=== PATIENT | female | born 1975 | race Caucasian/White ===

== ENCOUNTER 2020-10-19 11:18 | Emergency (ER) | payer MEDICAID, OTHER ==
[~2020-10-19] VITALS: Ht 165.1 cm; Wt 76.5 kg
[2020-10-19 11:18] VITALS: BP 142/84
[2020-10-19] MEDS ORDERED: VENL150C43 PO (11:25)
[2020-10-19] MEDS ORDERED: LORA2CON5 PO (11:25)
[2020-10-19] MEDS ORDERED: MONT10TA10 PO (11:25)
[2020-10-19] MEDS ORDERED: TRAZ-257 PO (11:25)
[2020-10-19] MEDS ORDERED: SERO1TAB PO (11:25)
[2020-10-19] MEDS ORDERED: NORCO, ANEXSIA 5/325MG TABLET (HYDROcodone/ACETAMINOPHEN) PO ONE (11:45)
--- NOTE | 2020-10-19 12:05 | REP ---
INDICATION: fall, back pain. COMPARISON: None. TECHNIQUE: Five views lumbosacral spine. FINDINGS: There is no compression fracture or malalignment. There is normal lumbar lordosis. There is mild curvature toward the left. The disc spaces are well preserved. The posterior elements are intact. There is a 1 cm calcific density in the right upper quadrant which may represent a gallstone. IMPRESSION: No fracture or dislocation. <Electronically signed by Moody Garcia > 10/19/20 [id number]
[2020-10-19] MEDS ORDERED: SKEL800T97 PO (12:07)
[2020-10-19] MEDS ORDERED: IBUP-1022 PO (12:08)
== END 2020-10-19 12:21 | disposition home or self-care (01) ==
LOC: M ED 11:18
DX: M62.830 Muscle spasm of back (principal); I10 Essential (primary) hypertension; Z79.899 Other long term (current) drug therapy

== ENCOUNTER → 2021-02-12 | Outpatient (REF) ==
[~2021-02-12] MED LIST: IBUP-1022 PO; LORA2CON5 PO; MONT10TA10 PO; SERO1TAB PO; SKEL800T97 PO; TRAZ-257 PO; VENL150C43 PO
--- NOTE | 2021-02-13 04:01 | REPPI ---
INDICATION: DISABILITY DIAGNOSIS DETERMINATION COMPARISON: None. TECHNIQUE: AP, lateral, bilateral oblique views right hand. FINDINGS: The osseous structures and joint spaces are intact and essentially age-appropriate. No overt osteoarthritic degenerative changes are appreciated. There is no evidence for acute fracture or dislocation. Surrounding soft tissues are unremarkable. No subcutaneous emphysema or radiodense foreign body. IMPRESSION: Essentially age-appropriate examination. No acute fracture or dislocation. <Electronically signed by Daniel Sim > 02/13/21 [id number]
--- NOTE | 2021-02-13 04:17 | REPPI ---
INDICATION: DISABILITY DIAGNOSIS DETERMINATION. COMPARISON: None. TECHNIQUE: AP, lateral, open mouth views of the cervical spine. FINDINGS: Focal early advanced degenerative changes at C5-6 with associated reversal of normal lordosis noted. Findings include endplate sclerosis, disc space narrowing, and osteophytosis. Remainder of the examination appears normal. No acute fracture/compression injury or subluxation. IMPRESSION: Focal advanced degenerative changes at C5-6 with associated reversal of normal lordosis. <Electronically signed by Daniel Sim > 02/13/21 [id number]
== END ==
LOC: M PLAIMG 11:36
PROVIDERS: ATTEND Internal Medicine
DX: M54.2 Cervicalgia (principal)

== ENCOUNTER 2022-01-05 18:46 | Emergency (ER) | payer OTHER, SELFPAY ==
[~2022-01-05] VITALS: Ht 165.1 cm; Wt 67.8 kg
[~2022-01-05 18:46] MED LIST changes: -MONT10TA10 PO; +MONT10TA97 PO
[2022-01-05 18:48] VITALS: BP 138/96
== END 2022-01-05 19:23 | disposition left against medical advice (07) ==
LOC: M ED 18:46
DX: Z53.9 Procedure and treatment not carried out, unspecified reason (principal)

== ENCOUNTER → 2022-01-20 | Outpatient (REF) | LOC: M PLALAB 14:33 | PROVIDERS: ATTEND Internal Medicine | DX: M54.59 Other low back pain (principal) ==

== ENCOUNTER 2022-01-23 20:57 | Emergency (ER) | payer SELFPAY ==
[~2022-01-23] VITALS: Ht 165.1 cm; Wt 80.0 kg
[2022-01-23 21:48] VITALS: BP 138/92
[2022-01-23 23:00] LABS: BASO % 0.8 % (0.0-1.0); EOS # 0.3 10^3/uL (0.0-0.5); EOS % 7.5 % (0.0-3.0); HEMATOCRIT 38.9 % (36.0-47.0); HEMOGLOBIN 13.1 g/dl (12.0-15.5); LYMPH # 0.9 10^3/uL (1.5-5.0); LYMPH % 21.3 % (24.0-44.0); MEAN CORPUSCULAR HGB CONC 33.7 g/dl (32.0-36.5); MEAN CORPUSCULAR VOLUME 89.2 fl (80.0-96.0); MONO # 0.6 10^3/uL (0.0-0.8); MONO % 13.8 % (2.0-8.0); NEUTROPHILS # 2.2 10^3/uL (1.5-8.5); NEUTROPHILS % 56.1 % (36.0-66.0); PLATELET COUNT, AUTOMATED 251 10^3/uL (150-450); RED BLOOD COUNT 4.36 10^6/uL (4.00-5.40)
[2022-01-23 23:33] LABS: ALBUMIN 3.5 GM/DL (3.2-5.2); ALT/SGPT 21 U/L (12-78); BILIRUBIN,DIRECT < 0.1 MG/DL (0.0-0.2); BILIRUBIN,TOTAL 0.2 MG/DL (0.2-1.0); BLOOD UREA NITROGEN 14 MG/DL (7-18); CALCIUM LEVEL 8.2 MG/DL (8.5-10.1); CARBON DIOXIDE LEVEL 22 MEQ/L (21-32); CHLORIDE LEVEL 111 MEQ/L (98-107); CREATININE FOR GFR 0.84 MG/DL (0.55-1.30); GLOMERULAR FILTRATION RATE > 60.0 (>58); GLUCOSE, FASTING 85 MG/DL (70-100); POTASSIUM SERUM 3.7 MEQ/L (3.5-5.1); SODIUM LEVEL 139 MEQ/L (136-145); TOTAL PROTEIN 6.5 GM/DL (6.4-8.2)
[2022-01-24] MEDS ORDERED: SERO1TAB PO (03:08)
[2022-01-24] MEDS ORDERED: TRAZ-257 PO (03:08)
[2022-01-24] MEDS ORDERED: VENL150C43 PO (03:08)
== END 2022-01-24 03:57 | disposition home or self-care (01) ==
LOC: M ED 20:57 → EDBD 20:57 → M ED 01-24 03:57
DX: F31.9 Bipolar disorder, unspecified (principal); F43.0 Acute stress reaction; F43.10 Post-traumatic stress disorder, unspecified; M54.50 Low back pain, unspecified; Z79.899 Other long term (current) drug therapy

== ENCOUNTER 2022-03-07 20:17 | Emergency (ER) | payer MEDICAID, OTHER ==
[~2022-03-07] VITALS: Ht 162.6 cm; Wt 72.7 kg
[2022-03-07] MEDS ORDERED: KETOROLAC 60MG 2ML VIAL IM ONE (22:40)
[2022-03-07] MEDS ORDERED: LIDOCAINE VISCOUS 2% SOLN 15ML UDC SSP ONE (22:40)
[2022-03-07] MEDS ORDERED: AUGMENTIN 875 MG TAB PO ONE (22:40)
[2022-03-07] MEDS ORDERED: LIDO2SOL17 PO (22:42)
[2022-03-07] MEDS ORDERED: KETO10TAB PO (22:42)
[2022-03-07] MEDS ORDERED: AMOX875T2 PO (22:42)
[2022-03-07 22:51] VITALS: BP 148/80
== END 2022-03-07 22:52 | disposition home or self-care (01) ==
LOC: M ED 20:17
DX: K08.89 Other specified disorders of teeth and supporting structures (principal); I10 Essential (primary) hypertension

== ENCOUNTER 2023-11-25 07:56 | Emergency (ER) | payer OTHER ==
[~2023-11-25] VITALS: Ht 165.1 cm; Wt 62.0 kg
[~2023-11-25 07:56] MED LIST changes: +AMOX875T2 PO; +KETO10TAB PO; +LIDO15SO PO
[2023-11-25] MEDS ORDERED: QUET50TA4 (08:12)
[2023-11-25] MEDS ORDERED: EFFE75CA2 PO (08:12)
[2023-11-25] MEDS ORDERED: LUMA42CA (08:12)
[2023-11-25] MEDS ORDERED: TOPI25TA10 (08:12)
[2023-11-25] MEDS ORDERED: ROZE8TAB16 PO (08:12)
[2023-11-25 09:23] LABS: RSV AMPLIFICATION NEGATIVE (NEGATIVE)
[2023-11-25] MEDS: NS 1,000 ML IV ONE (09:40)
[2023-11-25] MEDS: ONDANSETRON 4MG 2ML VIAL IV ONE (09:47)
[2023-11-25] MEDS: ONDANSETRON 4MG ORAL DISINTEGRATING TAB PO ONE (10:30)
[2023-11-25 11:06] LABS: HEMOGLOBIN 14.9 g/dl (12.0-15.5); MEAN CORPUSCULAR HEMOGLOBIN 29.3 pg (27.0-33.0); MEAN CORPUSCULAR HGB CONC 33.9 g/dl (32.0-36.5); MEAN CORPUSCULAR VOLUME 86.6 fl (80.0-96.0); PLATELET COUNT, AUTOMATED 201 10^3/uL (150-450); RED BLOOD COUNT 5.08 10^6/uL (4.00-5.40); WHITE BLOOD COUNT 6.3 10^3/uL (4.0-10.0)
[2023-11-25 11:36] LABS: BLOOD UREA NITROGEN 17 MG/DL (9-23); CARBON DIOXIDE LEVEL 21 MMOL/L (20-31); CHLORIDE LEVEL 108 MMOL/L (98-107); CREATININE FOR GFR 0.64 MG/DL (0.55-1.30); GLOMERULAR FILTRATION RATE > 60.0 (>58); GLUCOSE, FASTING 100 MG/DL (60-100); MAGNESIUM LEVEL 1.9 MG/DL (1.8-2.4); POTASSIUM SERUM 4.4 MMOL/L (3.5-5.1); SODIUM LEVEL 137 MMOL/L (136-145)
[2023-11-25 12:52] VITALS: BP 150/95; TEMP 98.1; O2SAT 98
== END 2023-11-25 12:56 | disposition home or self-care (01) ==
LOC: EDBD 07:56 → EDSEX 07:56 → M ED 07:56
DX: R11.2 Nausea with vomiting, unspecified (principal); T50.905A Adverse effect of unspecified drugs, medicaments and biological substances, initial encounter; F31.9 Bipolar disorder, unspecified; F43.10 Post-traumatic stress disorder, unspecified; Z79.899 Other long term (current) drug therapy
CPT/HCPCS: 80048; 83735; 85027; 87631; 96374; 99284; J2405